=== PATIENT | male | born 1995 | race Two or more races ===

== ENCOUNTER 2016-07-29 22:10 | Emergency (ER) | payer MEDICAID ==
[~2016-07-29] VITALS: Ht 170.2 cm; Wt 102.5 kg
[2016-07-29 22:17] VITALS: BP 149/76
== END 2016-07-30 01:45 | disposition left against medical advice (07) ==
LOC: ER 22:14
DX: J02.9 Acute pharyngitis, unspecified (principal); R05 Cough; Z53.21 Procedure and treatment not carried out due to patient leaving prior to being seen by health care provider

== ENCOUNTER 2019-07-12 22:01 | Emergency (ER) | payer MEDICAID ==
[~2019-07-12] VITALS: Ht 167.6 cm; Wt 98.0 kg
[2019-07-12 22:59] LABS: Urine Bacteria NONE SEEN /hpf (None Seen); Urine Blood Negative /uL (Negative); Urine Mucus FEW (None Seen); Urine Specific Gravity 1.029 (1.001-1.035); Urine WBC 143 /hpf (0 - 3)
[2019-07-12 23:55] VITALS: BP 147/95
[2019-07-13] MEDS ORDERED: cefTRIAXone SOD 1,000 MG VL IM ONE (00:45)
[2019-07-13] MEDS ORDERED: AZITHROMYCIN 250 MG TAB PO ONE (00:45)
== END 2019-07-13 01:15 | disposition home or self-care (01) ==
LOC: ER 22:02
DX: N39.0 Urinary tract infection, site not specified (principal); Z20.2 Contact with and (suspected) exposure to infections with a predominantly sexual mode of transmission
CPT/HCPCS: 81001; 96372; 99283; J0696

== ENCOUNTER 2022-01-08 22:05 | Emergency (ER) | payer SELFPAY ==
[~2022-01-08] VITALS: Ht 167.6 cm; Wt 75.0 kg
[2022-01-09 01:00] VITALS: BP 125/52
== END 2022-01-09 02:12 | disposition home or self-care (01) ==
LOC: EDUNIT# 22:05 → ER 22:05 → EDBD 22:05 → ER 01-09 02:12
DX: S06.0X0A Concussion without loss of consciousness, initial encounter (principal); R51.9 Headache, unspecified; Y04.8XXA Assault by other bodily force, initial encounter; Y93.89 Activity, other specified; Y92.89 Other specified places as the place of occurrence of the external cause; Y99.8 Other external cause status
CPT/HCPCS: 70450; 70486; 71046; 72125